=== PATIENT | female | born 1985 | race Caucasian/White ===

== ENCOUNTER 2024-07-07 04:57 | Emergency (ER) | payer BC ==
[~2024-07-07] VITALS: Ht 160 cm; Wt 45.0 kg
[2024-07-07 05:14] VITALS: O2SAT 98
[2024-07-07 06:00] LABS: BASOPHILS % 0.6 % (0.0-2.0); EOSINOPHILS % 1.6 % (0.0-5.0); HEMATOCRIT. 37.2 % (36.0-48.0); HEMOGLOBIN. 12.6 g/dL (12.0-16.0); MEAN CORPUSCULAR HEMOGLOBIN 31.3 pg (28.0-32.0); MEAN CORPUSCULAR HGB CONC 33.7 g/dL (31.0-37.0); MEAN CORPUSCULAR VOLUME 92.8 fL (81.0-99.0); MEAN PLATELET VOLUME 8.3 fl (7.4-10.4); MONOCYTES % 5.8 % (2.0-8.0); PLATELET 224 x1000/uL (130-400); RED BLOOD CELL COUNT 4.01 mill/uL (4.2-5.4); WHITE BLOOD COUNT 9.3 x1000/uL (4.5-11.0)
[2024-07-07 06:01] LABS: CHLORIDE 107 mEq/L (98-107); POTASSIUM 3.5 mEq/L (3.5-5.1); SODIUM 140 mEq/L (136-145)
[2024-07-07 06:02] LABS: CALCIUM 9.7 mg/dL (8.7-10.4); CARBON DIOXIDE 26 mEq/L (21-32)
[2024-07-07 06:07] LABS: CREATININE 0.8 mg/dL (0.6-1.0); GLUCOSE 98 mg/dL (70-105); UREA NITROGEN BLOOD 10 mg/dL (9-23)
[2024-07-07 06:09] LABS: ALANINE AMINOTRANSFERASE 10 IU/L (10-49); ALBUMIN 4.6 g/dL (3.2-4.8); ASPARTATE AMINOTRANSFERASE 19 IU/L (<34); BILIRUBIN DIRECT 0.2 mg/dL (<=3.0); BILIRUBIN TOTAL 0.8 mg/dL (0.1-1.0); PROTEIN TOTAL 7.5 g/dL (6.0-8.3)
[2024-07-07] MEDS: KETOROLAC 30MG/ML VIAL IM ONE (06:23)
[2024-07-07 06:37] LABS: HCG SCREEN NEGATIVE
[2024-07-07] MEDS ORDERED: ONDA-239 PO (08:01)
[2024-07-07] MEDS ORDERED: NAPR220C61 MT (08:01)
[2024-07-07 08:21] VITALS: BP 129/64; PULSE 71; RESP 16; TEMP 36.83628; O2SAT 99
== END 2024-07-07 08:21 | disposition home or self-care (01) ==
LOC: ER 04:57
DX: N83.291 Other ovarian cyst, right side (principal)
CPT/HCPCS: 99285; 76830; 76856; 80076; 80048; 84703; 85025; 36415; 96372; J1885